=== PATIENT | male | born 1955 | race Caucasian/White ===

== ENCOUNTER 2020-01-18 04:33 | Emergency (ER) | payer OTHER ==
[~2020-01-18] VITALS: Ht 190 cm; Wt 110.0 kg
[2020-01-18] MEDS ORDERED: hydrALAZINE (APESOLINE) 20 MG/ML VIAL IV STA (04:52)
--- NOTE | 2020-01-18 05:03 | ED General ---
General Chief Complaint: Chest Pain Stated Complaint: PAIN IN BACK,PAIN IN CHEST Source of Information: Patient (ROSIBEL THOMAS MD) History of Present Illness Date Seen by Provider: Jan 18, 2020 Time Seen by Provider: 04:36 Initial Comments 64 yo M presenting with complaint of pain in back that was just to the left of his spine that woke him up suddenly at 0330 am. He had not had pain like this before. He has no nausea or vomiting with the pain. He states the pain is con stant since he was woken up with the pain. He feels the pain has moved some to his left flank and to his front of his chest. He has not noticed anything making the pain worse and nothing makes the pain better. He has a history of having the left kidney removed in the past due to cancer. He had some spots in his lungs last year they thought were recurrent spots of cancer but when biopsied they turned out to be nothing. He denies taking any prescription medicines. He has known high blood pressure but does not take anything for it. He takes vitamins and herbs. He has had a stent in his heart but states this feels different. He denies any shortness of breath or diaphoresis. (ROSIBEL THOMAS MD) Allergies and Home Medications Allergies Coded Allergies: No Known Drug Allergies (Unverified , 01/18/20) Patient Home Medication List Home Medication List Reviewed: Yes (ROSIBEL THOMAS MD) Home Medication List Reviewed: Yes (KOKI GARCIA DO) Review of Systems Review of Systems Constitutional: No chills, No fever EENTM: no symptoms reported Respiratory: no symptoms reported Cardiovascular: no symptoms reported Gastrointestinal: no symptoms reported Genitourinary: no symptoms reported Musculoskeletal: no symptoms reported Skin: no symptoms reported Psychiatric/Neurological: No Symptoms Reported Hematologic/Lymphatic: No Symptoms Reported (ROSIBEL THOMAS MD) Past Jbqqwbu-Nezltj-Ohbfws Hx Past Med/Social Hx: Reviewed Nursing Past Med/Soc Hx (ROSIBEL THOMAS MD) Patient Social History Recent Foreign Travel: No Contact w/Someone Who Travel: No (ROSIBEL THOMAS MD) Past Medical History Surgeries: Yes (kidney removed for kidney cancer) Cardiac: Yes Coronary Artery Disease, Hypertension Cancer: Yes Kidney Did You Recieve Any Treatments: Yes What Type of Treatment Did You: Surgical Intervention (ROSIBEL THOMAS MD) Physical Exam Vital Signs Vital Signs - First Documented 01/18/20 04:39 Temp 35.6 Pulse 70 Resp 16 B/P (MAP) 198/107 (137) Pulse Ox 99 O2 Delivery Room Air ([facility]) Vital Signs Capillary Refill : (ROSIBEL THOMAS MD) Height, Weight, BMI Height: '" Weight: lbs. oz. kg; BMI Method: General Appearance: No Apparent Distress, WD/WN HEENT: PERRL/EOMI, Pharynx Normal Neck: Full Range of Motion, Supple Respiratory: Chest Non Tender, Lungs Clear, Normal Breath Sounds, No Accessory Muscle Use, No Respiratory Distress Cardiovascular: Regular Rate, Rhythm, No Edema, Normal Peripheral Pulses Gastrointestinal: Normal Bowel Sounds, No Pulsatile Mass, Non Tender, Soft Back: Normal Inspection, No CVA Tenderness, No Vertebral Tenderness Extremity: Normal Capillary Refill, No Pedal Edema Neurologic/Psychiatric: Alert, Oriented x3, No Motor/Sensory Deficits Skin: Normal Color, Warm/Dry (ROSIBEL THOMAS MD) Progress/Results/Core Measures Suspected Sepsis SIRS Temperature: Pulse: Respiratory Rate: Laboratory Tests 01/18/20 04:50: White Blood Count 6.6 Blood Pressure / Mean: Laboratory Tests 01/18/20 04:50: Creatinine 1.46H, INR Comment 0.9, Platelet Count 229, Total Bilirubin 0.3 (ROSIBEL THOMAS MD) Results/Orders Lab Results Laboratory Tests Test 01/18/20 04:50 01/18/20 04:59 01/18/20 07:30 Range/Units White Blood Count 6.6 4.3-11.0 10^3/uL Red Blood Count 4.98 4.35-5.85 10^6/uL Hemoglobin 15.0 13.3-17.7 G/DL Hematocrit 45 40-54 % Mean Corpuscular Volume 89 80-99 FL Mean Corpuscular Hemoglobin 30 25-34 PG Mean Corpuscular Hemoglobin Concent 34 32-36 G/DL Red Cell Distribution Width 14.6 H 10.0-14.5 % Platelet Count 229 130-400 10^3/uL Mean Platelet Volume 10.9 H 7.4-10.4 FL Neutrophils (%) (Auto) 60 42-75 % Lymphocytes (%) (Auto) 29 12-44 % Monocytes (%) (Auto) 7 0-12 % Eosinophils (%) (Auto) 3 0-10 % Basophils (%) (Auto) 1 0-10 % Neutrophils # (Auto) 4.0 1.8-7.8 X 10^3 Lymphocytes # (Auto) 1.9 1.0-4.0 X 10^3 Monocytes # (Auto) 0.5 0.0-1.0 X 10^3 Eosinophils # (Auto) 0.2 0.0-0.3 10^3/uL Basophils # (Auto) 0.1 0.0-0.1 10^3/uL Prothrombin Time 13.0 12.2-14.7 SEC INR Comment 0.9 0.8-1.4 Activated Partial Thromboplast Time 30 24-35 SEC Sodium Level 142 135-145 MMOL/L Potassium Level 3.8 3.6-5.0 MMOL/L Chloride Level 104 98-107 MMOL/L Carbon Dioxide Level 25 21-32 MMOL/L Anion Gap 13 5-14 MMOL/L Blood Urea Nitrogen 23 H 7-18 MG/DL Creatinine 1.46 H 0.60-1.30 MG/DL Estimat Glomerular Filtration Rate 49 BUN/Creatinine Ratio 16 Glucose Level 110 H 70-105 MG/DL Calcium Level 9.3 8.5-10.1 MG/DL Corrected Calcium 8.5-10.1 MG/DL Magnesium Level 2.1 1.6-2.4 MG/DL Total Bilirubin 0.3 0.1-1.0 MG/DL Aspartate Amino Transf (AST/SGOT) 16 5-34 U/L Alanine Aminotransferase (ALT/SGPT) 12 0-55 U/L Alkaline Phosphatase 83 40-136 U/L Troponin I < 0.30 < 0.30 <0.30 NG/ML Pro-B-Type Natriuretic Peptide 65.0 <75.0 PG/ML Total Protein 6.6 6.4-8.2 GM/DL Albumin 4.6 H 3.2-4.5 GM/DL Lipase 38 8-78 U/L Urine Color YELLOW Urine Clarity CLEAR Urine pH 6.0 5-9 Urine Specific [place] 1.020 1.016-1.022 Urine Protein NEGATIVE NEGATIVE Urine Glucose (UA) NEGATIVE NEGATIVE Urine Ketones NEGATIVE NEGATIVE Urine Nitrite NEGATIVE NEGATIVE Urine Bilirubin NEGATIVE NEGATIVE Urine Urobilinogen 0.2 < = 1.0 MG/DL Urine Leukocyte Esterase NEGATIVE NEGATIVE Urine RBC (Auto) TRACE H NEGATIVE Urine RBC 0-2 /HPF Urine WBC 2-5 /HPF Urine Squamous Epithelial Cells 0-2 /HPF Urine Crystals NONE /LPF Urine Bacteria NEGATIVE /HPF Urine Casts NONE /LPF Urine Mucus NEGATIVE /LPF Urine Culture Indicated NO (KOKI GARCIA DO) My Orders Orders - KOKI GARCIA DO Troponin I Fs (01/18/20 07:31) (KOKI GARCIA DO) Medications Given in ED Current Medications Medications Dose Ordered Sig/Liang Route Start Time Stop Time Status Last Admin Dose Admin Iohexol 100 ml ONCE ONCE IV 01/18/20 06:00 01/18/20 06:01 DC 01/18/20 05:57 100 ML Sodium Chloride 100 ml ONCE ONCE IV 01/18/20 06:00 01/18/20 06:01 DC 01/18/20 05:57 100 ML (KOKI GRACIA DO) Vital Signs/I&O 01/18/20 01/18/20 04:39 08:48 Temp 35.6 36.2 Pulse 70 70 Resp 16 18 B/P (MAP) 198/107 (137) 176/98 Pulse Ox 99 97 O2 Delivery Room Air Room Air (KOIK GARCIA DO) Vital Signs/I&O Capillary Refill : (ROSIBEL THOMAS MD) Progress Note #1: Progress Note check labs and CXR with ECG. With him having pain in his chest and spine will see if can evaluate his aorta with a CTA chest abdomen pelvis, but will depend on what his single kidney function is since he has had one removed on the left already. For his hypertension will give Hydralazine 10 mg IV and see if that helps his pain. Progress Note #2: Time: 05:49 Progress Note ECG does not show any acute changes and is a sinus rhythm without ST elevation. His labs show normal CBC without elevation of his WBC count. Chemistry shows normal troponin and proBNP. His BUN and Cr are slightly elevated. Normal Lipase. Nothing specific to account for his pain. The blood pressure has come down to 170/95 with Hydralazine 10 mg. Will give a Liter of NS to help flush out the contrast and support his kidney function and will be able to give the contrast for his CTA Chest/Abdomen/Pelvis to look for reasons why he was having this pain. Care passed to Dr. Garcia at 0600 for review of imaging and to determine final disposition of the patient. (ROSIBEL THOMAS MD) Progress Note : Time: 09:00 Progress Note Radha - I took over care at 0600. I went and spoke to patient and re-examined him. He said that his pain woke him from his sleep at 3:30 in the morning and was a gnawing dull ache in the left thoracic paraspinal region that radiates straight forward into his left upper quadrant and left lower chest. He said he was belching quite a bit and by the time I saw him at 6:00 this morning his pain had completely resolved. Did do a second troponin which came back negative. His workup was essentially completely unremarkable for acute process. I did discuss all and subtle findings on labs and CT imaging and the need for follow- up. He said he is in the process of moving to [place] in 3 days but he would try and follow with his primary care provider tomorrow and the next day for blood pressure rechecks. Patient has a heart score equal to 4 given his pr ior coronary artery disease and stenting which is moderate risk and I told him this would warrant hospital transfer. Using shared decision making the decision was made to let him go home and follow-up as an outpatient. I do suspect this is more likely a GI cause to his pain which I explained to him however I cannot completely rule out acute coronary syndrome and emergency department. He verbalized understanding of the limitations of the testing emergency room and was okay with the small percentage of diagnostic uncertainty. I told him he has had elevated blood pressure here however I cannot technically diagnosed with high blood pressure as he has never had high blood pressure before in the past per the patient. I told him to follow with Dr. ARANGO tomorrow and the next day and if his blood pressures are still elevated he will likely need to be on blood pressure medicines. I told him he could try Maalox and Tums for immediate relief this pain comes back and he can also take Pepcid and Prilosec. He should take it easy on his diet take a aspirin daily and not exert himself including sex. Patient had normal vital signs other than his hypertension and has been completely pain free for 3 hours. Patient will be discharged in stable condition told to follow-up tomorrow in the next day for blood pressure checks and come back to the ED sooner if worsening pain shortness of breath or other general concerns. Patient and aware and agreeable with plan for discharge and verbalized understanding of the above instructions. (KOKI GARCIA DO) ECG Initial ECG Impression Date: Jan 18, 2020 Initial ECG Impression Time: 04:52 Initial ECG Rate: 62 Initial ECG Rhythm: Normal Sinus Initial ECG Comparisson: No Previous ECG Available Comment Normal sinus rhythm with a heart rate is 62 bpm. CA interval with 191 ms. QT interval 411 ms and a QTc interval 418 ms. He has no ST elevation. He has no prior tracing available for comparison. (ROSIBEL THOMAS MD) Diagnostic Imaging Diagonstic Imaging: Xray Plain Films/CT/US/NM/MRI: chest Comments NAME: IVETTE SANCHES [facility] REC#: [id number] PT STATUS: REG ER : 1955 PHYSICIAN: ROSIBEL THOMAS MD ADMIT DATE: 01/18/20/ER FS Draft Date of Exam:01/18/20 CHEST 1 VIEW AP/PA ONLY CLINICAL INDICATION: Patient with chest and epigastric pain. EXAM: Portable chest x-ray upright view. COMPARISONS: None. FINDINGS: Lungs/pleura: There is mild bibasilar atelectasis. Otherwise, lungs are clear. There is no pneumothorax. There is no pleural effusion. Mediastinum: Unremarkable. Pulmonary vasculature: Unremarkable. Heart: Unremarkable. Bones/extrathoracic soft tissue: There are degenerative spurs involving the thoracic spine. IMPRESSION: There is mild bibasilar atelectasis. There is no radiographic evidence of acute cardiopulmonary process. Dictated on workstation # [id number] Dict: 01/18/20 0545 Trans: 01/18/20 0547 [id number] Interpreted by: SRUTHI STAUFFER MD Electronically signed by: Diagonstic Imaging: CT Plain Films/CT/US/NM/MRI: chest, abdomen, pelvis (ROSIBEL THOMAS MD) Transfer of Care Transfer of Care Time: 06:00 Care transferred to: Dr. Garcia (ROSIBEL THOMAS MD) Departure Impression Primary Impression: Hypertension Qualified Codes: I10 - Essential (primary) hypertension Additional Impressions: Left flank pain Left-sided chest pain Abdominal bloating with cramps Disposition: 01 HOME, SELF-CARE Condition: Stable Departure-Patient Inst. Referrals: CHANDLER ARANGO DO (PCP/Family) Primary Care Physician Patient Instructions: Gas and Bloating Add. Discharge Instructions: Use acid reducers and bland diet Follow up with Dr. Arango All discharge instructions reviewed with patient and/or family. Voiced understanding. ROSIBEL THOMAS MD Jan 18, 2020 05:03 KOKI GARCIA DO Jan 18, 2020 09:05
[2020-01-18 05:31] LABS: BILIRUBIN,URINE NEGATIVE (NEGATIVE); CLARITY,URINE CLEAR; COLOR,URINE YELLOW; GLUCOSE, URINE (UA) NEGATIVE (NEGATIVE); KETONES,URINE NEGATIVE (NEGATIVE); LEUKOCYTE ESTERASE ,URINE NEGATIVE (NEGATIVE); NITRITE,URINE NEGATIVE (NEGATIVE); PROTEIN,URINE NEGATIVE (NEGATIVE); RBC,URINE 0-2 /HPF
[2020-01-18 05:32] LABS: BACTERIA,URINE NEGATIVE /HPF; SQUAMOUS EPITHELIAL CELL,UR 0-2 /HPF
[2020-01-18 05:33] LABS: BASOPHILS % (AUTO) 1 % (0-10); EOSINOPHILS # (AUTO) 0.2 10^3/uL (0.0-0.3); EOSINOPHILS % (AUTO) 3 % (0-10); HEMATOCRIT 45 % (40-54); LYMPHOCYTES # (AUTO) 1.9 X 10^3 (1.0-4.0); LYMPHOCYTES % (AUTO) 29 % (12-44); MEAN CORPUSCULAR HEMOGLOBIN 30 PG (25-34); MEAN CORPUSCULAR HGB CONC 34 G/DL (32-36); MEAN CORPUSCULAR VOLUME 89 FL (80-99); MEAN PLATELET VOLUME 10.9 FL (7.4-10.4); MONOCYTES # (AUTO) 0.5 X 10^3 (0.0-1.0); MONOCYTES % (AUTO) 7 % (0-12); NEUTROPHILS % (AUTO) 60 % (42-75); PLATELET COUNT 229 10^3/uL (130-400); RED CELL DISTRIBUTION WIDTH 14.6 % (10.0-14.5); WHITE BLOOD COUNT 6.6 10^3/uL (4.3-11.0)
[2020-01-18 05:34] LABS: BASOPHILS # (AUTO) 0.1 10^3/uL (0.0-0.1); INR 0.9 (0.8-1.4)
[2020-01-18 05:38] LABS: CHLORIDE 104 MMOL/L (98-107); POTASSIUM 3.8 MMOL/L (3.6-5.0); SODIUM 142 MMOL/L (135-145)
[2020-01-18 05:39] LABS: ALANINE AMINOTRANSFERASE 12 U/L (0-55); ALBUMIN 4.6 GM/DL (3.2-4.5); ALKALINE PHOSPHATASE 83 U/L (40-136); BILIRUBIN,TOTAL 0.3 MG/DL (0.1-1.0); BUN/CREATININE RATIO 16; CALCIUM 9.3 MG/DL (8.5-10.1); CARBON DIOXIDE 25 MMOL/L (21-32); CREATININE SERUM 1.46 MG/DL (0.60-1.30); GFR ESTIMATED 49; GLUCOSE 110 MG/DL (70-105); LIPASE 38 U/L (8-78); MAGNESIUM 2.1 MG/DL (1.6-2.4); TOTAL PROTEIN 6.6 GM/DL (6.4-8.2)
--- NOTE | 2020-01-18 05:47 | Diagnostic Imaging Report ---
CLINICAL INDICATION: Patient with chest and epigastric pain. EXAM: Portable chest x-ray upright view. COMPARISONS: None. FINDINGS: Lungs/pleura: There is mild bibasilar atelectasis. Otherwise, lungs are clear. There is no pneumothorax. There is no pleural effusion. Mediastinum: Unremarkable. Pulmonary vasculature: Unremarkable. Heart: Unremarkable. Bones/extrathoracic soft tissue: There are degenerative spurs involving the thoracic spine. IMPRESSION: There is mild bibasilar atelectasis. There is no radiographic evidence of acute cardiopulmonary process. Dictated by: Dictated on workstation # [id number]
[2020-01-18] MEDS ORDERED: IOHEXOL 350 MG/ML 100 ML (OMNIPAQUE 350) VIAL IV ONE (06:00)
[2020-01-18] MEDS ORDERED: HOLD METFORMIN - RECEIVED CONTRAST 20 ML VIAL IV SCH (06:00)
[2020-01-18] MEDS ORDERED: NS 100 ML (IVPB) BAG IV ONE (06:00)
[2020-01-18] MEDS ORDERED: NS IV 1000 ML 1,000 ML IV STA (06:01)
--- NOTE | 2020-01-18 08:05 | Diagnostic Imaging Report ---
PROCEDURE: CT angiography of the chest with contrast and CT abdomen and pelvis with contrast. TECHNIQUE: Multiple contiguous axial images were obtained through the chest, abdomen and pelvis after administration of intravenous contrast. 3D MIP reconstructed CT angiography acquisitions of the aorta were then performed. Auto Exposure Controls were utilized during the CT exam to meet ALARA standards for radiation dose reduction. INDICATION: Pain in the chest, abdomen and the pelvis CHEST: There are no pulmonary arterial filling defects. The thoracic aorta patent and nonaneurysmal. No focal consolidation. No suspicious nodule. No adenopathy. No thoracic effusion or fluid collection. ABDOMEN PELVIS: Liver, gallbladder, spleen, adrenals, pancreas nonacute. Tiny subcentimeter likely fatty nodule in the left adrenal is believed adenomatous and there is some hepatic cysts simple and benign. Intramuscular abdominal wall lipoma in the right flank present. No acute abdominal wall pathology. There is some postoperative distortion periumbilical. No rectus sheath collection. Urinary bladder is nearly empty limiting its evaluation. The appendix normal. The right kidney unobstructed. The left kidney surgically absent. There is an incidental splenule noted with no lymphadenopathy. No ascites, abscess, hematoma or fluid collection. There is prostatomegaly with apparent TUR defect within the prostate. No free air. IMPRESSION: Previous nephrectomy. Some postoperative distortion of the anterior abdominal wall of the right flank abdominal wall lipoma. Liver cyst benign. Adrenal adenoma unobstructed. Solitary unobstructed right kidney nonacute. Normal aside from a small 1 cm cyst. Noninflamed diverticulosis. Normal appendix. Prostamegaly and previous prostatic intervention. Prior left nephrectomy. No adenopathy or suspicious mass. No fluid collection, inflammatory process or acute abnormalities identified. Chest was unremarkable. Dictated by: Dictated on workstation # [id number]
[2020-01-18 08:48] VITALS: BP 176/98
== END 2020-01-18 08:45 | disposition home or self-care (01) ==
LOC: ER FS 04:37
DX: I10 Essential (primary) hypertension (principal); R07.89 Other chest pain; R14.0 Abdominal distension (gaseous); R10.13 Epigastric pain; Z85.528 Personal history of other malignant neoplasm of kidney
CPT/HCPCS: 36415; 71045; 71275; 74174; 80053; 81000; 83690; 83735; 83880; 84484; 85025; 85610; 85730; 93005; 93041